=== PATIENT | female | born 1975 | race Hispanic/Latino ===

== ENCOUNTER 2017-07-13 02:52 | Emergency (ER) | payer SELFPAY ==
[~2017-07-13] VITALS: Ht 162.6 cm; Wt 95.0 kg
[~2017-07-13 02:52] MED LIST: BENTYL10 MG PO; CIPROFLOXACN500 MG PO; LORTAB 5/3255 MG PO; METRONIDAZOL500 MG PO; NO HOME MEDS
[2017-07-13 03:42] LABS: INFLUENZA A NONE DETECTED (NONE DETECT); INFLUENZA B NONE DETECTED (NONE DETECT)
[2017-07-13] MEDS ORDERED: CHERATUSSIN PO (03:46)
[2017-07-13 04:00] VITALS: BP 121/78
== END 2017-07-13 04:11 | disposition home or self-care (01) | DRG 153 ==
LOC: ED 02:52
PROVIDERS: Family Medicine
DX: J06.9 Acute upper respiratory infection, unspecified (principal)

== ENCOUNTER 2021-01-30 10:00 | Outpatient (REF) | payer SELFPAY ==
[~2021-01-30 10:00] MED LIST changes: +CHERATUSSIN PO
== END 2021-01-30 12:16 | disposition home or self-care (01) | DRG 179 ==
LOC: INF 10:00
PROVIDERS: ATTEND Physician Assistant Medical
DX: U07.1 COVID-19 (principal)

== ENCOUNTER 2021-02-03 10:38 | Inpatient (IN) | payer BC ==
[~2021-02-03] VITALS: Ht 162.6 cm; Wt 88.0 kg
--- NOTE | 2021-02-03 10:56 | NUR ---
PATIENT TO ROOM VIA WHEELCHAIR AND PHYSICIAN NOTIFIED OF PATIENT STATUS
[2021-02-03 11:36] LABS: HEMATOCRIT 40.4 % (37.0-47.0); HEMOGLOBIN 12.6 g/dl (12.0-16.0); IMMATURE GRANULOCYTES 0.3 % (0.0-5.0); MEAN CELL VOLUME 81.1 fL CALC (80.0-100.0); MEAN CORPUSCULAR HGB 25.3 pG CALC (26.0-32.0); MEAN CORPUSCULAR HGB CONC 31.2 g/dL CAL (32.0-36.0); NEUT# 2.29 thou/uL (2.00-7.15); RED BLOOD COUNT 4.98 mill/uL (4.20-5.60); RED CELL DISTRI WIDTH 15.5 % (11.5-15.5)
[2021-02-03 11:56] LABS: ALKALINE PHOSPHATASE 93 u/l (38-126); ANION GAP 12 (6-22 (CALC)); BILIRUBIN, TOTAL 0.4 mg/dL (0.0-1.4); BUN 8 mg/dL (7-17); BUN/CREATININE RATIO 15 (12-20 (CALC)); CARBON DIOXIDE 26 mmol/l (22-30); CHLORIDE 102 mmol/l (95-108); CREATININE 0.5 mg/dL (0.5-1.0); GFR > 60 ML/MIN (>=60 (CALC)); GFR FOR AFR.AMER. > 60 ML/MIN (>=60 (CALC)); POTASSIUM 4.1 mmol/l (3.5-5.1); SODIUM 136 mmol/l (137-146); TOTAL PROTEIN 7.1 g/dL (6.3-8.2)
[2021-02-03 11:58] LABS: SGOT/AST 82 u/l (14-36)
--- NOTE | 2021-02-03 12:00 | NUR ---
PATIENT RESTING ON STRETCHER AT THIS TIME. NO COMPLATINS VOICED
--- NOTE | 2021-02-03 12:50 | NUR ---
EVA RESTING ON STRETCHER AWAITNG RESULTS
--- NOTE | 2021-02-03 13:00 | NUR ---
PATIEN TAKEN OFF OF O2 AT THIS TIME WILL MONITOR O2 AND THEN PREPARE FOR WALK TEST
--- NOTE | 2021-02-03 13:29 | NUR ---
WALK TEST COMPLETED AT THIS TIME. O2 SATS DROPPED TO 82% PATIENT WAS SHORT OF BREATH AND COUGHING WHILE WALKING WELL.
--- NOTE | 2021-02-03 14:30 | NUR ---
PATIENT RESTING ON STRETCHER AT THIS TIME. AWAITING RESULTS
--- NOTE | 2021-02-03 15:30 | NUR ---
PATIENT RESTING ON STRETCHER AWAITING ADMISSION AT THIS TIME.
--- NOTE | 2021-02-03 16:00 | NUR ---
RECIEVED REPORT FROM JABIER GOLDMAN
--- NOTE | 2021-02-03 16:10 | NUR ---
REPORT CALLED TO JOSE ON [facility].
[2021-02-03 16:49] VITALS: BP 141/89
--- NOTE | 2021-02-03 17:00 | NUR ---
PT ARRIVED TO [facility] ROOM 268 VIA STRETCHER ACCOMPAINED BY ER STAFF. PT IS A/O X3. ASSESSMENT AND VITALS OBTAINED. RESPIRATIONS ARE EVEN AND UNLABORED, 97% ON 2L NC. CRACKLES PRESENT IN UPPER LOBES UPON ASCULTATIONS. HEEART RHYTHM NORMAL TELE IN PLACE, SR PER ER MONITORING. ([id number]). PULSES STRONG. #20G RAC FLUSHED, SITE APPEARS HEALTHY AND PATENT. SKIN INTACT. PT DENIES OF ANY PAINS OR DISCOMFORTS AT THIS TIME.PT EDUCATED ON I.S/CHAIR/PRONING. PT VERBALIZED UNDERSTANDING. PT ORIENTED TO ROOM AND CALL SYSTEM. PT DENIES ANY ALLERGIES. ALLERGY BAND APPLIED. ALL SAFETY PRECAUTIONS ARE IN PLACE WITH CALL LIGHT IN REACH. WILL CONTINUE TO [facility].
--- NOTE | 2021-02-03 18:19 | NUR ---
PT 98% ON 2L NC. O2 REMOVED, 94%. RESPIRATIONS ARE EVEN AND UNLABORED WITH NO DISTRESS NOTED. 2L NC AT BEDSIDE PRN. PT INSTRUCTED TO REAPPLY IF NEEDED. PT VERBALIZED UNDERSTANDING. WILL CONTINUE TO MONITOR
[2021-02-03 20:00] VITALS: BP 131/77
--- NOTE | 2021-02-03 21:50 | NUR ---
PT MEDICATED ORDERS PROVIDE AND ASSESSMENT COMPLETED AT THIS TIME. PT DENIES FEELING SOB LAYING IN THE BED, BUT REPORTS THAT SHE GETS SOB ON EXERTION. REPORTS HAVING MULTIPLE LOOSE STOOL THIS EVENING. REPORTS COUGH WITH MODERATE AMOUNT OF SPUTUM CLEAR.
[2021-02-03 23:33] VITALS: BP 127/61
[2021-02-04 04:00] VITALS: BP 122/68
--- NOTE | 2021-02-04 04:00 | NUR ---
PT 02SAT 84-86% PT IN PRONE POSITION, REPORTS FEELING LIKE SHE CAN'T CATCH HER BREATH. RESP CALLED AND PT ENCOURAGED TO SLOW HER BREATHING THROUGH THE NOSE AND OUT PURSED LIPS. PT IS ON 15LNC HIGH FLOW. I ASSISTED PT TO REPOSITION WITHOUT CHEST BEING PROPPED ON PILLOWS. SHE IS NOW PRONING WITH CHEST FLAT TO THE BED AND O2 SATS @91%
--- NOTE | 2021-02-04 04:12 | NUR ---
PT ON HER SIDE IN THE BED. HYDRAULICS TEACHER JUST OBTAINED V/S, REPORTED STABLE. PT DENIES ANY SOB AT THIS TIME. NO S/O DISTRESS NOTED.
--- NOTE | 2021-02-04 04:20 | NUR ---
O2 SATS 92% ON 15LNC HIGH FLOW. PT FLAT PRONED.
--- NOTE | 2021-02-04 04:40 | NUR ---
PT PRONING, REPORTS FEELING BETTER, LESS SOB/DISTRESSED. 02SAT 94-96%
[2021-02-04 05:28] LABS: HEMATOCRIT 36.8 % (37.0-47.0); HEMOGLOBIN 11.4 g/dl (12.0-16.0); IMMATURE GRANULOCYTES 0.2 % (0.0-5.0); MEAN CELL VOLUME 80.7 fL CALC (80.0-100.0); NEUT# 3.56 thou/uL (2.00-7.15); RED BLOOD COUNT 4.56 mill/uL (4.20-5.60); RED CELL DISTRI WIDTH 15.4 % (11.5-15.5)
[2021-02-04 06:12] LABS: ALBUMIN 3.4 g/dL (3.2-5.0); ALKALINE PHOSPHATASE 78 u/l (38-126); BILIRUBIN, TOTAL 0.3 mg/dL (0.0-1.4); BUN 12 mg/dL (7-17); BUN/CREATININE RATIO 26 (12-20 (CALC)); C-REACTIVE PROTEIN 1.7 mg/dL (0-0.9); CHLORIDE 106 mmol/l (95-108); CREATININE 0.5 mg/dL (0.5-1.0); GFR > 60 ML/MIN (>=60 (CALC)); GFR FOR AFR.AMER. > 60 ML/MIN (>=60 (CALC)); POTASSIUM 4.6 mmol/l (3.5-5.1); SGOT/AST 30 u/l (14-36); SODIUM 136 mmol/l (137-146); TOTAL PROTEIN 6.1 g/dL (6.3-8.2)
[2021-02-04 06:13] LABS: ANION GAP 15 (6-22 (CALC)); CARBON DIOXIDE 20 mmol/l (22-30)
--- NOTE | 2021-02-04 06:52 | NUR ---
REPORT REC FROM Lara TOMAS RN
[2021-02-04 09:06] VITALS: BP 113/67
--- NOTE | 2021-02-04 09:06 | NUR ---
PT SITTING IN BED. A&O X4. NO DISTRESS NOTED. PT CURRENTLY VIA ROOM AIR. CLEAR BREATH SOUNDS UPON AUSCULTATION. IS DEVICE AT BEDSIDE; PT ACHIEVING 750 ML, ENCOURAGED TO USE Q1HR. FINGERER COUGH NOTED; EXERTIONAL SOB NOTED. RETAIL EVENT AND SALES ASSISTANT IN PLACE. ACTIVE BOWEL SOUNDS X4 QUADRANTS. NO OTHER NEEDS AT THIS TIME. ASSESSMENT COMPLETED. DISCUSSED POC. ISOLATION PRECAUTIONS IN PLACE; PT EDUCATED ON THE NEED FOR THESE PRECAUTIONS. CALL LIGHT LEFT WITHIN REACH.
--- NOTE | 2021-02-04 10:50 | NUR ---
DR BARBOSA AND Mary PRASAD APRN
[2021-02-04 12:00] VITALS: BP 113/73
--- NOTE | 2021-02-04 12:50 | NUR ---
PT SITTING IN BED. NO DISTRESS NOTED. O2 VIA RA 96%. PT UPDATED ON POC AND WALK TEST TO BE PREFORMED TOMORROW FOR POSSIBILITY OF D/C, PT AGREEABLE TO PLAN. NO OTHER NEEDS AT THIS TIME. CALL LIGHT WITHIN REACH.
--- NOTE | 2021-02-04 14:08 | NUR ---
PT SITTING IN BED. PT REMAINS 96% VIA RA. NO OTHER NEEDS AT THIS TIME. CALL LIGHT WITHIN REACH.
[2021-02-04 15:00] VITALS: BP 124/62
--- NOTE | 2021-02-04 17:50 | NUR ---
PT SITTING IN BED EATING DINNER. NO NEEDS AT THIS TIME. CALL LIGHT WITHIN REACH.
[2021-02-04 19:32] VITALS: BP 120/64
--- NOTE | 2021-02-04 19:32 | NUR ---
PT ASSESSMENT COMPLETED AND V/S OBTAINED. PT V/S STABLE AT THIS TIME. 95% ON RA. DENIES ANY DISTRESSES. DENIED NEED FOR ADDITIONAL DRINK OR SNACK. DINNER TRAY WAS REMOVED AT THIS TIME, 75% COMPLETE
[2021-02-05] VITALS: BP 115/57
--- NOTE | 2021-02-05 01:50 | NUR ---
PT SLEEPING, NO S/O DISTRESS NOTED. CALL LIGHT W/IN REACH.
[2021-02-05 04:00] VITALS: BP 117/62
--- NOTE | 2021-02-05 04:15 | NUR ---
PT SLEEPING UPON ENTERING THE ROOM. V/S ASSESSED, CALL LIGHT W/IN REACH.
--- NOTE | 2021-02-05 08:20 | NUR ---
PT RESTING COMFORTABLY IN BED. PT A&O X4. PT DENIES PAIN AT THIS TIME. VS AND ASSESSMENT COMPLETE. PT LUNGS CLEAR AND DIMINISHED. ABDOMEN SOFT AND ROUND. BOWEL SOUNDS ACTIVE X 4QUAD. PERIPHERAL PULSES PALPABLE. SPO2 95-96% ON ROOM AIR. WILL MONITOR PT CLOSELY
[2021-02-05 11:00] VITALS: BP 115/69
--- NOTE | 2021-02-05 12:00 | NUR ---
PT RESTING COMFORTABLY IN BED. PT DENIES ANY PAIN OR DISCOMFORT. PT HAS NO NEEDS AT THIS TIME. WILL CONTINUE TO MONITOR
[2021-02-05] MEDS ORDERED: AZITHROMYCIN500 MG PO (12:08)
[2021-02-05] MEDS ORDERED: DEXAMETHASON6 MG PO (12:08)
[2021-02-05 15:15] VITALS: BP 110/68
--- NOTE | 2021-02-05 16:50 | NUR ---
Discharge instructions given. Patient verbalizes understanding of same. Discharged in stable condition via Wheelchair to Home with family. All belongings sent with pt. PATIENT VERBALIZED UNDERSTADNING OF D/C INSTRUCTIONS.
== END 2021-02-05 16:50 | disposition home or self-care (01) | DRG 177 ==
LOC: ED 10:38 → ED-I 12:20 → ED 12:20 → ED-I 14:20 → ED 15:35 → MS2 15:36
PROVIDERS: Family Medicine; ADMIT Hospitalist; ATTEND Internal Medicine
PROC: XW033E5 Introduction of Remdesivir Anti-infective into Peripheral Vein, Percutaneous Approach, New Technology Group 5 (ICD-10-PCS; principal; 2021-02-03)
DX: U07.1 COVID-19 (principal); J12.82 Pneumonia due to coronavirus disease 2019; J96.01 Acute respiratory failure with hypoxia
CPT/HCPCS: J1650; Q9967

== ENCOUNTER 2023-11-21 08:56 | Emergency (ER) | payer SELFPAY ==
[~2023-11-21] VITALS: Ht 162.6 cm; Wt 90.7 kg
[~2023-11-21 08:56] MED LIST changes: +AZITHROMYCIN500 MG PO; +DEXAMETHASON6 MG PO
[2023-11-21 09:12] VITALS: BP 148/87
[2023-11-21 09:15] VITALS: BP 134/85
[2023-11-21 09:30] VITALS: BP 139/90
[2023-11-21 09:46] VITALS: BP 143/103
[2023-11-21 09:46] LABS: URINE BLOOD DIPSTICK Moderate (NEGATIVE); URINE GLUCOSE - DIPSTICK Negative (NEGATIVE); URINE KETONE Negative (NEGATIVE); URINE LEUK ESTERASE Negative (NEGATIVE); URINE NITRITE - DIPSTICK Negative (Negative); URINE PH 7.5 (4.5-8.0); URINE PROTEIN - DIPSTICK >=300 mg/dL (NEG-TRACE); URINE SPECIFIC GRAVITY 1.025; URINE UROBILINOGEN - DIPSTICK 0.2 E.U./dL (0.2)
[2023-11-21 09:48] LABS: BASO% 0.5 % (0-3); HEMOGLOBIN 9.9 g/dl (12.0-16.0); IMMATURE GRANULOCYTES 0.2 % (0.0-5.0); LYMPH% 29.4 % (15-41); MEAN CELL VOLUME 80.3 fL CALC (80.0-100.0); MEAN CORPUSCULAR HGB 24.1 pG CALC (26.0-32.0); MONO% 7.8 % (2-13); NEUT# 4.04 thou/uL (2.00-7.15); NEUT% 62.1 % (42-76); RED BLOOD COUNT 4.11 mill/uL (4.20-5.60); RED CELL DISTRI WIDTH 14.5 % (11.5-15.5)
[2023-11-21 09:51] LABS: URINE COLOR Bloody; URINE RBC TNTC RBC/hpf (0-5)
[2023-11-21 09:52] LABS: ALBUMIN 3.8 g/dL (3.2-5.0); BILIRUBIN, TOTAL 0.4 mg/dL (0.02-1.3); CREATININE 0.5 mg/dL (0.5-1.0); TOTAL PROTEIN 6.6 g/dL (6.3-8.2)
[2023-11-21 09:57] LABS: PROTHROMBIN TIME 9.7 SECONDS (9.0-12.5)
[2023-11-21 10:00] VITALS: BP 127/79
[2023-11-21] MEDS ORDERED: PROVERA10 MG PO (10:06)
[2023-11-21 10:08] VITALS: BP 127/79
== END 2023-11-21 10:18 | disposition home or self-care (01) | DRG 761 ==
LOC: ED 08:56
PROVIDERS: Family Medicine
DX: N92.0 Excessive and frequent menstruation with regular cycle (principal); D64.9 Anemia, unspecified